=== PATIENT | male | born 1960 | race Caucasian/White ===

== ENCOUNTER 2016-08-07 15:18 | Day surgery (SDC) | payer OTHER ==
--- NOTE | ~2016-08-07 | HP ---
PATIENT'S NAME: DINORAH MANCIA [facility] AGE: 56 Y [address] ROOM: [facility] [place], [place] [address] LOCATION: [facility] ADMIT DATE: 08/07/2016 History & Physical DISCHARGE DATE: FAMILY PHYSICIAN: PHYSICIAN, NO ATTENDING PHYSICIAN: Juaquin Najera DATE OF SERVICE: CHIEF COMPLAINT: Right ankle injury. HISTORY: The patient is a 56-year-old male, seen in the [facility] following an injury to his right ankle. He states earlier this morning around 10 a.m., he was fishing when he turned his ankle, felt a pop and had immediate pain. The patient was in the process of reeling in the fish, so continued to carry out the activity. By the time they he got the fish reeled in, they noticed that his ankle was sitting cockeyed. At that point, they decided that he better be seen for evaluation. They presented to the [facility]. X-rays demonstrated a fracture dislocation of the ankle. He was splinted and Orthopedics was consulted. X-rays were reviewed, and it was determined that the patient should be sent emergently to the [facility] Emergency Room. We evaluated him there, and the fracture-dislocation was confirmed. There were no other major injuries at the time of the fall. He denies numbness or tingling of the foot or ankle. He denies any previous ankle injuries. He denies any other concerns or complaints. REVIEW OF SYSTEMS: All systems negative except for that mentioned above. PAST MEDICAL HISTORY: Positive for current smoker and previous IV drug user. CURRENT MEDICATIONS: None. ALLERGIES: NO KNOWN DRUG ALLERGIES. PAST SURGICAL HISTORY: Nothing contributory. FAMILY HISTORY: Nothing contributory. PATIENT'S NAME: DINORAH MANCIA [facility] AGE: 56 Y [address] ROOM: [id number] [place], [place] [address] LOCATION: [facility] ADMIT DATE: 08/07/2016 History & Physical DISCHARGE DATE: FAMILY PHYSICIAN: PHYSICIAN, NO ATTENDING PHYSICIAN: Juaquin Najera PHYSICAL EXAMINATION: GENERAL: The patient is alert and oriented to person, place, and time. Answers all questions appropriately. HEENT: Hearing grossly intact. No visible deformities. CHEST: Respiratory rate is regular. There is no audible wheezing. Lungs are clear to auscultation. CIRCULATORY: Radial pulses are 2+ bilaterally. Pedal pulses are 2+ bilaterally. HEART: On auscultation, heart has a regular rhythm with no murmurs. ABDOMEN: Soft, tender, and nondistended. MUSCULOSKELETAL: Exam of the right lower extremity reveals an intact splint. This was cautiously removed, revealing intact skin. Sensation is intact over the dorsal and plantar surfaces of the foot. The patient is able to wiggle his toes without difficulty. Motor strength is 5/5 in all muscle groups available for testing. He has no pain with range of motion at the hip or the knee. No visible wound exam of the bilateral upper extremities, and the left lower extremity reveals no tenderness to palpation throughout. There is full pain-free range of motion of all major joints without difficulty or pain. Motor strength is 5/5 in all major muscle groups. Sensation is grossly intact throughout. RADIOGRAPH INTERPRETATION: Review of x-rays taken in [facility] shows a pilon fracture of the ankle affecting both the tibia and the fibula. There is anterior ankle joint dislocation. IMPRESSION: Right ankle pilon fracture with anterior dislocation. RECOMMENDATIONS: Dr. Najera and I evaluated the patient and formulated the following treatment plan. I had a long discussion with the patient regarding his physical exam findings and radiographs. Given the significance of the fracture with the obvious dislocation, recommendation is made close reduction in the operating room. This would be done under fluoroscopic exam. If after the reduction, the ankle is stable and appears to be well aligned, plan would be to place him in a splint and sent him home with followup as an outpatient. If, however, under fluoroscopic exam, the ankle appears to still be unstable, recommendation will be made for placement of an external fixator. If he does require an external fixator, plan will be to keep him overnight and then send him home and follow up as an outpatient. The patient is from [place], and he is planing to return home over the next couple of days. Once we have this completed, he can return home with plans as long as he follows up with an orthopedist. He will require definitive open reduction with internal fixation around 1 to 2 weeks post reduction. He understands and agrees with this plan. We will take him to the OR on an emergent basis. PATIENT'S NAME: DINORAH MANCIA [facility] AGE: 56 Y [address] ROOM: [address] [place] [id number] LOCATION: G3 ADMIT DATE: 08/07/2016 History & Physical DISCHARGE DATE: FAMILY PHYSICIAN: PHYSICIANMATY ATTENDING PHYSICIAN: Juaquin Najera AMAN RAM FOR JUAQUIN NAJERA MD SB/modl /[id number] D: [id number] T: [id number] HISTORY & PHYSICAL
--- NOTE | ~2016-08-07 | ER ---
PATIENT'S NAME: DINORAH MANCIA [facility] AGE: 56 Y [address] ROOM: [address] [address] LOCATION: [facility] ADMIT DATE: 08/07/2016 ER/Outpatient Report DISCHARGE DATE: FAMILY PHYSICIAN: PHYSICIAN, NO ATTENDING PHYSICIAN: Poli Najera CHIEF COMPLAINT: Broken ankle. HISTORY OF PRESENT ILLNESS: Mr. Mancia arrives by private vehicle from [facility]. Earlier today, he was fishing when he inadvertently tripped while trying to land a fish, which he did subsequently in fact land. However, during the fall, he did sustain a fracture dislocation to his right ankle. He was seen locally, plain films were obtained, he was splinted, and came up here. He has been n.p.o. since yesterday evening except for some coffee this morning. He has a smoking history, but knows he had tetanus shot within the last 5 years for sure. He denies any numbness or tingling in the foot. The pain is starting to bother him somewhat. He denies any fevers or chills. No other injuries or anything bothering him at this time. PAST MEDICAL HISTORY: Documented on the record and reviewed by me. SOCIAL HISTORY: Documented on the record and reviewed by me. MEDICATIONS: Documented on the record and reviewed by me. ALLERGIES: DOCUMENTED ON THE RECORD AND REVIEWED BY ME. REVIEW OF SYSTEMS: All systems reviewed and negative except as noted in the HPI. PHYSICAL EXAMINATION: VITAL SIGNS: Blood pressure 170/81, pulse 59, respiratory rate is 18, temperature 99.5, and SpO2 is 99% on room air. GENERAL: Age-appropriate male, in no obvious distress, in mild pain, recumbent on exam table. NEUROLOGIC: Awake and alert. GCS 15. No focal deficits. No asymmetry. HEENT: Normocephalic and atraumatic. Eyes are PERRL. Oropharynx is clear. NECK: Supple. Trachea is midline. CHEST: Heart has regular rate and rhythm with no murmurs. Lungs are clear to PATIENT'S NAME: DINORAH MANCIA [facility] AGE: 56 Y [address] ROOM: [address] [address] LOCATION: [facility] ADMIT DATE: 08/07/2016 ER/Outpatient Report DISCHARGE DATE: FAMILY PHYSICIAN: PHYSICIAN, NO ATTENDING PHYSICIAN: Poli Najera auscultation bilaterally. ABDOMEN: Soft, nontender, and nondistended. BACK: Normal to inspection. EXTREMITIES: Warm and well perfused. The right lower extremity has a splint. The toes are able to move to command. He has good capillary refill throughout. He has a strong dorsalis pedis pulse. The splint was not completely taken down. LABORATORY DATA AND X-RAYS: CBC, CMS, and coags were obtained prior to going to the OR. White count is 12.5, otherwise unremarkable, other labs pending. Plain films prior to splinting were reviewed, concerning for fracture dislocation of the ankle. IMPRESSION: Status post fracture dislocation of the ankle, status post splinting. EMERGENCY DEPARTMENT COURSE: The patient was seen and evaluated as above. No further interventions from an emergency standpoint as the patient is neurovascularly intact. He was given fentanyl for his pain. IV was established. He will go to the operating room with Dr. Najera for further evaluation and treatment of this ankle injury. MD JEANNETTE ELLISON/boaz /[id number] d: 08/08/16 0037 t: 08/28/16 1654, OUTPATIENT REPORT
--- NOTE | ~2016-08-07 | OR ---
PATIENT'S NAME: DINORAH MANCIA [facility] AGE: 56 Y [address] ROOM: [address] [address] LOCATION: [facility] ADMIT DATE: 08/07/2016 OR/Procedure Report DISCHARGE DATE: FAMILY PHYSICIAN: PHYSICIAN, NO ATTENDING PHYSICIAN: Poli Najera SURGEON: Poli Najera MD CRISIS MANAGER: AMAN Márquez. DATE OF PROCEDURE: 08/07/2016 PREOPERATIVE DIAGNOSIS: Right tibial pylon versus trimalleolar ankle fracture dislocation. POSTOPERATIVE DIAGNOSIS: Right trimalleolar ankle fracture dislocation. PROCEDURE: Closed reduction, right ankle fracture dislocation. ANESTHESIA: General. ESTIMATED BLOOD LOSS: None. TOURNIQUET TIME: None. FLUID REPLACEMENT: 600 mL crystalloid. COMPLICATIONS: None. INDICATIONS: The patient is a 56-year-old male, seen in the ER with a fracture dislocation of his right ankle. X-rays showed posterior dislocation with a fibular fracture and then a large posterior malleolar fragment versus a tibial pylon fracture. Again, it was difficult to tell on plain x-rays. Recommendations were made that we take him to the operating room for closed reduction and then either splinting if this is a stable injury or external fixation if this was more of an unstable pylon variant. Risks and benefits were explained in detail to the patient. He agreed to proceed. DESCRIPTION OF PROCEDURE: The patient was brought to the operating room, placed supine on the operative table. All bony prominences were well padded. General anesthesia was administered. To begin, a closed reduction was performed of the right ankle. A palpable clunk was achieved when we anteriorly directed the foot and it reduced into the ankle mortise. We then viewed this fluoroscopically. Again, it was well aligned in the AP view. On the lateral view, it looked like the posterior fragment was a large posterior malleolar fragment without a significant articular impaction with a posteriorly directed force on the foot. It would sublux at 3 or 4 mm, but no farther than this and the talus would not dislocate posteriorly and the ankle PATIENT'S NAME: DINORAH MANCIA [facility] AGE: 56 Y [address] ROOM: [address] [address] LOCATION: [facility] ADMIT DATE: 08/07/2016 OR/Procedure Report DISCHARGE DATE: FAMILY PHYSICIAN: PHYSICIAN, NO ATTENDING PHYSICIAN: Poli Najera was felt to be fairly stable. So, we elected to splint this rather than using external fixation. The patient was placed in a well-padded, well-molded, posterior splint with a sugar tong. He was gently transferred to the hospital cart, taken to the postanesthesia recovery room apparently in stable condition. Please note, we have recommended that he ice and elevate, be completely nonweightbearing, and then follow up with an orthopedic surgeon in [place], where he is from, in the next several days for definitive treatment. We have given him our number in the meantime if there are any problems. POLI NAJERA MD DMH/modl /[id number] d: 08/08/16 0000 t: 09/13/16 1732, OPERATIVE SUMMARY
[2016-08-07 16:00] LABS: BASOPHIL # 0.1 K/uL (0.0-0.2); BASOPHIL % 0.4 %; EOSINOPHIL # 0.1 K/uL (0.0-0.5); EOSINOPHIL % 0.6 %; HEMATOCRIT 44.6 % (37.0-53.0); HEMOGLOBIN 15.1 g/dL (12.0-17.0); IMMATURE GRANULOCYTE % 0.2 %; LYMPHOCYTE % 15.7 %; MCH 31.4 pg (27.0-34.0); MCHC 33.9 gm/dL (32.0-36.5); MCV 92.7 fl (83.0-98.0); MONOCYTE # 0.8 K/uL (0.0-1.0); MONOCYTE % 6.1 %; MPV 9.7 fl (9.4-12.4); NEUTROPHIL # (ANC) 9.6 K/uL (1.4-9.0); NRBC % 0 /100WBC (0-0.00); PLATELET COUNT 304 K/uL (150-450); RBC 4.81 M/uL (4.00-6.00); RDW-CV 13.2 % (11.9-14.6); WBC 12.5 K/uL (4.0-11.0)
[2016-08-07 16:17] LABS: ALBUMIN 4.2 gm/dL (3.5-5.0); ALK PHOS 67 IU/L (33-138); ALT 21 IU/L (12-78); AST 12 IU/L (10-40); BLOOD UREA NITROGEN 12 mg/dL (6-24); CALCIUM 8.6 mg/dL (8.5-10.5); CHLORIDE 109 mMol/L (96-110); CO2 25 mMol/L (22-32); CREATININE 1.1 mg/dL (0.6-1.3); ESTIMATED GFR (MDRD EQUATION) > 60; SODIUM 141 mMol/L (135-145); TOTAL BILIRUBIN 0.3 mg/dL (0.0-1.5); TOTAL PROTEIN 7.2 g/dL (6.0-8.4)
[2016-08-07 16:20] LABS: INR - (THERAPEUTIC) 0.95 (0.92-1.07); PTT 26 SECONDS (25-32)
[2016-08-07] MEDS ORDERED: NORCO PO (18:15)
[2016-08-07] MEDS ORDERED: PERCOCET 5-3251 EACH PO (18:38)
== END 2016-08-07 19:00 | disposition disaster alternative care site (69) ==
LOC: GACC 15:18 → G3N 16:04 → GACC 16:04
PROVIDERS: Emergency Medicine
PROC: 0QSGXZZ Reposition Right Tibia, External Approach (ICD-10-PCS; principal; 2016-08-07)
DX: S82.851A Displaced trimalleolar fracture of right lower leg, initial encounter for closed fracture (principal); W18.39XA Other fall on same level, initial encounter
CPT/HCPCS: J2405; J3010